=== PATIENT | male | born 1955 | race Caucasian/White ===

== ENCOUNTER 2017-01-26 15:36 | Inpatient (IN) ==
--- NOTE | 2017-01-26 15:47 | Emergency Department Note ---
Disposition Clinical Impression: Diverticulitis, Sepsis, TONI (acute kidney injury) Disposition: Admitted As Inpatient Condition: Good General Adult HPI - General Chief complaint: ED Abdominal Pain Stated complaint: Left flank pain Time Seen by Provider: 01/26/17 15:43 Source: patient - History of Present Illness Pain Scale: 2 - Related Data Previous Rx's Medication Instructions Recorded Naproxen [Naprosyn] 500 mg PO BID #10 tablet 11/25/16 Allergies Allergy/AdvReac Type Severity Reaction Status Date / Time acetaminophen [From Percocet] Allergy Itching Verified 01/26/17 15:43 Oxycodone [From Percocet] Allergy Itching Verified 01/26/17 15:43 Penicillins Allergy Blister Verified 01/26/17 15:43 Past Medical History - Past Medical History Medical history: Reports: hyperlipidemia, hypertension Surgical history: Reports: non-contributory Psychiatric history: Reports: anxiety, depression - Social History Smoking Status: Former smoker Alcohol use: Reports: none Drug use: Reports: none Physical Exam - General General appearance: alert, in no apparent distress Course Vital Signs Temperature 98.0 F 01/26/17 15:40 Pulse Rate 105 01/26/17 15:40 Respiratory Rate 16 01/26/17 15:40 Blood Pressure 126/86 01/26/17 15:40 O2 Sat by Pulse Oximetry 94 01/26/17 15:40 Temperature 98.0 F 01/27/17 07:28 Pulse Rate 64 01/27/17 07:28 Respiratory Rate 16 01/27/17 07:28 Blood Pressure 119/76 01/27/17 07:28 O2 Sat by Pulse Oximetry 95 01/27/17 07:28 Oxygen Delivery Oxygen Delivery Room Air Medical Decision Making - Lab Data Result diagrams: 01/27/17 03:30 01/27/17 03:30 Lab Results 01/26/17 01/26/17 01/26/17 Range/Units 16:17 16:17 16:17 WBC 12.8 H (4.3-11.1) K/mcL RBC 5.56 H (4.19-5.50) M/mcL Hgb 16.5 (12.9-16.9) g/dL Hct 49.0 (37.5-50.1) % MCV 88.1 (83.0-100.0) fL MCH 29.7 (28.0-33.3) pg MCHC 33.7 (31.6-35.5) g/dL RDW 13.3 (11.5-14.5) % Plt Count 235 (140-400) K/mcL MPV 10.9 (9.4-12.4) fL Immature Gran % 0.5 (0-4) % Seg Neutrophils % 72.2 % Lymphocytes % 17.7 % Monocytes % 8.6 % Eosinophils % 0.5 % Basophils % 0.5 % Neutrophils # 9.2 H (1.6-8.9) K/mcL Lymphocytes # 2.3 (0.6-4.6) K/mcL Monocytes # 1.1 (0.0-1.3) K/mcL Eosinophils # 0.1 (0.0-0.6) K/mcL Basophils # 0.1 (0.0-0.2) K/mcL PT 12.2 H (9.4-12.1) Seconds INR 1.1 APTT 31.5 (26.0-36.0) Seconds Sodium 139 (136-145) mEq/L Potassium 3.8 (3.5-4.5) mEq/L Chloride 107 (98-109) mEq/L Carbon Dioxide 22 (19-29) mEq/L BUN 13 (8-26) mg/dL Creatinine 1.81 H (0.72-1.25) mg/dL Est GFR ( Amer) 47 L (> 60) Est GFR (Non-Af Amer) 38 L (> 60) BUN/Creatinine Ratio 7 (6-26) Glucose 100 H (70-99) mg/dL Calculated Osmolality 288 (280-300) Lactic Acid (0.5-2.2) mmol/L Calcium 9.7 (8.6-10.8) mg/dL Phosphorus 2.4 (2.3-4.7) mg/dL Magnesium 2.0 (1.6-2.6) mg/dL Urine Color (Yellow) Urine Clarity (Clear) Urine pH (5.0-8.0) pH Units Ur Specific [place] (1.010-1.025) Urine Protein (Neg-Trace) mg/dL Urine Glucose (UA) (Normal) mg/dL Urine Ketones (Negative) mg/dL Urine Blood (Negative) Urine Nitrite (Negative) Urine Bilirubin (Negative) Urine Urobilinogen (Normal) mg/dL Ur Leukocyte Esterase (Negative) Urine Microscopic RBC (0-3) per hpf Urine Microscopic WBC (0-3) per hpf Ur Squamous Epith Cells (None-Few) per lpf Amorphous Sediment (Few) Urine Bacteria (None-Few) per hpf Hyaline Casts (None-Few) per lpf Granular Casts (None Seen) per lpf 01/26/17 01/26/17 Range/Units 16:53 17:52 WBC (4.3-11.1) K/mcL RBC (4.19-5.50) M/mcL Hgb (12.9-16.9) g/dL Hct (37.5-50.1) % MCV (83.0-100.0) fL MCH (28.0-33.3) pg MCHC (31.6-35.5) g/dL RDW (11.5-14.5) % Plt Count (140-400) K/mcL MPV (9.4-12.4) fL Immature Gran % (0-4) % Seg Neutrophils % % Lymphocytes % % Monocytes % % Eosinophils % % Basophils % % Neutrophils # (1.6-8.9) K/mcL Lymphocytes # (0.6-4.6) K/mcL Monocytes # (0.0-1.3) K/mcL Eosinophils # (0.0-0.6) K/mcL Basophils # (0.0-0.2) K/mcL PT (9.4-12.1) Seconds INR APTT (26.0-36.0) Seconds Sodium (136-145) mEq/L Potassium (3.5-4.5) mEq/L Chloride (98-109) mEq/L Carbon Dioxide (19-29) mEq/L BUN (8-26) mg/dL Creatinine (0.72-1.25) mg/dL Est GFR ( Amer) (> 60) Est GFR (Non-Af Amer) (> 60) BUN/Creatinine Ratio (6-26) Glucose (70-99) mg/dL Calculated Osmolality (280-300) Lactic Acid 1.1 (0.5-2.2) mmol/L Calcium (8.6-10.8) mg/dL Phosphorus (2.3-4.7) mg/dL Magnesium (1.6-2.6) mg/dL Urine Color Dark Yellow (Yellow) Urine Clarity Cloudy A (Clear) Urine pH 6.0 (5.0-8.0) pH Units Ur Specific [place] 1.021 (1.010-1.025) Urine Protein >=300 H (Neg-Trace) mg/dL Urine Glucose (UA) 100 H (Normal) mg/dL Urine Ketones Trace H (Negative) mg/dL Urine Blood Small H (Negative) Urine Nitrite Negative (Negative) Urine Bilirubin Small H (Negative) Urine Urobilinogen Normal (Normal) mg/dL Ur Leukocyte Esterase Small H (Negative) Urine Microscopic RBC 5-15 H (0-3) per hpf Urine Microscopic WBC 15-30 H (0-3) per hpf Ur Squamous Epith Cells Many H (None-Few) per lpf Amorphous Sediment Moderate H (Few) Urine Bacteria Moderate H (None-Few) per hpf Hyaline Casts Many H (None-Few) per lpf Granular Casts Few H (None Seen) per lpf Attestation Statement - Attestation Attestation: I examined this patient and my medical decision-making was reviewed with the PEDIATRIC RADIOLOGIST/PA/Advanced Practice Nurse/Resident Physician. I agree with the documented findings, disposition and treatment plan as described except to the extent set forth below. [id number] time provided Patient complains of left flank pain. He has a history of right sided nephrectomy due to a remote history of renal cell carcinoma. He is standing at the bedside at the time of my exam. He has a well-healed laparotomy incision. He appears in no acute distress
--- NOTE | 2017-01-26 16:10 | Emergency Department Note ---
Disposition Clinical Impression: TONI (acute kidney injury) Diverticulitis Qualifiers: Diverticulitis site: large intestine Diverticulitis bleeding: without bleeding Diverticulitis complication: without perforation or abscess Qualified Code(s): K57.32 - Diverticulitis of large intestine without perforation or abscess without bleeding Sepsis Qualifiers: Sepsis type: sepsis due to unspecified organism Qualified Code(s): A41.9 - Sepsis, unspecified organism Disposition: Admitted As Inpatient Condition: Good Referrals: NO,PCP [Primary Care Provider] - Forms: ED Satisfaction Letter, Work/School Release Time of Disposition: 17:50 General Adult HPI - General Chief complaint: ED Abdominal Pain Stated complaint: Left flank pain Time Seen by Provider: 01/26/17 15:43 Source: patient Mode of arrival: ambulatory Limitations: no limitations Nursing Notes Reviewed: Yes Vital Signs Reviewed: Yes - History of Present Illness HPI Narrative: 61-year-old male with history of hypertension, hyperlipidemia, right nephrectomy s/p RCC presents with left sided flank pain. Pain is sharp and radiates into the groin. This began yesterday morning while at rest. Pain has been intermittent and is currently 2/10. Reports fever and chills last night, though he did not take his temperature. He has associated left-sided abdominal pain as well. No history of trauma or heavy lifting. Denies any urinary complaints or testicular pain. Has some associated nausea but denies any vomiting. Denies any history of kidney stones. He has history of UTIs which he states he feels similar to today's episode. History of RCC with right nephrectomy in 2008. He follows Dr[address] Robison regularly, and states that he had no problems since his surgery. Patient denies dysuria, urinary frequency/ urgency, and musculoskeletal strain. Onset (ago): day(s) Location: back Radiation: abdomen, flank Pain Severity: mild Pain Scale: 2 Quality: sharp Consistency: intermittent Improves with: immobilization Associated symptoms: Reports: fever/chills, nausea/vomiting Treatments Prior to Arrival: none - Related Data Previous Rx's Medication Instructions Recorded Naproxen [Naprosyn] 500 mg PO BID #10 tablet 11/25/16 Allergies Allergy/AdvReac Type Severity Reaction Status Date / Time acetaminophen [From Percocet] Allergy Itching Verified 01/26/17 15:43 Oxycodone [From Percocet] Allergy Itching Verified 01/26/17 15:43 Penicillins Allergy Blister Verified 01/26/17 15:43 All systems ED: reviewed and negative except as stated. Constitutional: Reports: fever, chills Cardiovascular: Denies: chest pain, palpitations Respiratory: Denies: cough, dyspnea Gastrointestinal: Reports: nausea. Denies: abdominal pain, vomiting, diarrhea, constipation Genitourinary: Denies: urgency, dysuria, frequency, hematuria, testicular pain Musculoskeletal: Reports: back pain (left flank) Integumentary: Denies: rash, abrasion Neurological: Denies: headache Past Medical History - Past Medical History Attestation: Yes The following information was validated with the patient. 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) Psychiatric history: Reports: anxiety, depression - Social History Smoking Status: Former smoker Alcohol use: Reports: none Drug use: Reports: none Physical Exam - General Limitations: no limitations General appearance: alert, in no apparent distress, obese - Head Head exam: atraumatic, normocephalic - Eye Eye exam: Present: normal appearance, PERRL, EOMI - ENT ENT exam: normal exam, normal oropharynx, mucous membranes moist - Neck Neck exam: Present: normal inspection, full ROM, trachea midline - Chest Chest inspection: Present: normal inspection, symmetric chest wall rise - Respiratory Respiratory exam: Present: normal lung sounds bilaterally. Absent: respiratory distress, wheezes - Cardiovascular Cardiovascular exam: Present: regular rate, normal rhythm, normal heart sounds. Absent: systolic murmur, diastolic murmur - Abdominal Exam Abdominal exam: Present: soft (Obese), tenderness (Left-sided with radiation from the back), distention, normal bowel sounds, scar (Right of midline from nephrectomy). Absent: guarding, rebound, rigidity, organomegaly Abdominal tenderness: Present: LUQ, LLQ, diffuse, mild - Extremities Exam Extremities exam: Present: normal inspection, full ROM, normal capillary refill. Absent: tenderness, pedal edema, calf tenderness - Back Exam Back exam: Present: normal inspection, tenderness (Left-sided with radiation to the front of the abdomen), CVA tenderness (L). Absent: CVA tenderness (R), muscle spasm, rashes - Neurological Exam Neurological exam: Present: alert, oriented X3 - Psychiatric Psychiatric exam: Present: normal affect, normal mood - Skin Skin exam: Present: warm, dry, intact, normal color. Absent: rash Course Course Narrative: [id number] male presents with left flank pain. Denies any history of trauma or kidney stones. History of right nephrectomy [address] Nobles. Pain has been intermittent sharp radiates to the groin. Patient is in some mild distress. He is a febrile and tachycardic 102. Heart is regular rate and rhythm. Lungs are clear to auscultation bilaterally. Abdomen is soft but obese, no significant distention or rigidity. He has left CVA tenderness. Some mild tenderness along the left abdomen. No signs of trauma, rash or muscle spasm. Bloodwork reveals a mild leukocytosis 12.8. Creatinine is elevated at 1.8 with baseline around 1.3. Urine is concerning for possible infection but is contaminated with many squamous, small RBCs, moderate leuk esterase and no nitrites. Will culture. Will single kidney and pain, will get CT scan of abdomen and pelvis for possible kidney stones or intra-abdominal abnormalities. Patient is in agreement with plan. Pain medication offered but refuses medication at this time. He is informed to contact myself record press supervisor if pain worsens. - Reevaluation(s) Reevaluation #1: Lactate and blood cultures ordered. Patient has not been hypotensive and does not require 30 mL/kg fluid bolus resuscitation. Will start on Cipro and Flagyl for diverticulitis. This will cover also for possible UTI. With his single kidney and elevated creatinine 1.8 consistent with a acute kidney injury he would be appropriate for admission. Patient is in agreement with this plan. Impression is diverticulitis, sepsis, TONI, and possible UTI, Time: 17:58 Vital Signs Temperature 98.0 F 01/26/17 15:40 Pulse Rate 105 01/26/17 15:40 Respiratory Rate 16 01/26/17 15:40 Blood Pressure 126/86 01/26/17 15:40 O2 Sat by Pulse Oximetry 94 01/26/17 15:40 Temperature 98.0 F 01/26/17 15:40 Pulse Rate 81 01/26/17 17:10 Respiratory Rate 16 01/26/17 17:10 Blood Pressure 125/85 01/26/17 17:10 O2 Sat by Pulse Oximetry 94 01/26/17 17:10 Oxygen Delivery Oxygen Delivery Room Air Medical Decision Making - Medical Records Medical records reviewed: Yes I reviewed the patient's medical records. - Lab Data Lab results reviewed: Yes I reviewed the patient's lab results. Result diagrams: 01/26/17 16:17 01/26/17 16:17 Lab Results 01/26/17 01/26/17 01/26/17 Range/Units 16:17 16:17 16:17 WBC 12.8 H (4.3-11.1) K/mcL RBC 5.56 H (4.19-5.50) M/mcL Hgb 16.5 (12.9-16.9) g/dL Hct 49.0 (37.5-50.1) % MCV 88.1 (83.0-100.0) fL MCH 29.7 (28.0-33.3) pg MCHC 33.7 (31.6-35.5) g/dL RDW 13.3 (11.5-14.5) % Plt Count 235 (140-400) K/mcL MPV 10.9 (9.4-12.4) fL Immature Gran % 0.5 (0-4) % Seg Neutrophils % 72.2 % Lymphocytes % 17.7 % Monocytes % 8.6 % Eosinophils % 0.5 % Basophils % 0.5 % Neutrophils # 9.2 H (1.6-8.9) K/mcL Lymphocytes # 2.3 (0.6-4.6) K/mcL Monocytes # 1.1 (0.0-1.3) K/mcL Eosinophils # 0.1 (0.0-0.6) K/mcL Basophils # 0.1 (0.0-0.2) K/mcL PT 12.2 H (9.4-12.1) Seconds INR 1.1 APTT 31.5 (26.0-36.0) Seconds Sodium 139 (136-145) mEq/L Potassium 3.8 (3.5-4.5) mEq/L Chloride 107 (98-109) mEq/L Carbon Dioxide 22 (19-29) mEq/L BUN 13 (8-26) mg/dL Creatinine 1.81 H (0.72-1.25) mg/dL Est GFR ( Amer) 47 L (> 60) Est GFR (Non-Af Amer) 38 L (> 60) BUN/Creatinine Ratio 7 (6-26) Glucose 100 H (70-99) mg/dL Calculated Osmolality 288 (280-300) Calcium 9.7 (8.6-10.8) mg/dL Phosphorus 2.4 (2.3-4.7) mg/dL Magnesium 2.0 (1.6-2.6) mg/dL Urine Color (Yellow) Urine Clarity (Clear) Urine pH (5.0-8.0) pH Units Ur Specific [place] (1.010-1.025) Urine Protein (Neg-Trace) mg/dL Urine Glucose (UA) (Normal) mg/dL Urine Ketones (Negative) mg/dL Urine Blood (Negative) Urine Nitrite (Negative) Urine Bilirubin (Negative) Urine Urobilinogen (Normal) mg/dL Ur Leukocyte Esterase (Negative) Urine Microscopic RBC (0-3) per hpf Urine Microscopic WBC (0-3) per hpf Ur Squamous Epith Cells (None-Few) per lpf Amorphous Sediment (Few) Urine Bacteria (None-Few) per hpf Hyaline Casts (None-Few) per lpf Granular Casts (None Seen) per lpf 01/26/17 Range/Units 16:53 WBC (4.3-11.1) K/mcL RBC (4.19-5.50) M/mcL Hgb (12.9-16.9) g/dL Hct (37.5-50.1) % MCV (83.0-100.0) fL MCH (28.0-33.3) pg MCHC (31.6-35.5) g/dL RDW (11.5-14.5) % Plt Count (140-400) K/mcL MPV (9.4-12.4) fL Immature Gran % (0-4) % Seg Neutrophils % % Lymphocytes % % Monocytes % % Eosinophils % % Basophils % % Neutrophils # (1.6-8.9) K/mcL Lymphocytes # (0.6-4.6) K/mcL Monocytes # (0.0-1.3) K/mcL Eosinophils # (0.0-0.6) K/mcL Basophils # (0.0-0.2) K/mcL PT (9.4-12.1) Seconds INR APTT (26.0-36.0) Seconds Sodium (136-145) mEq/L Potassium (3.5-4.5) mEq/L Chloride (98-109) mEq/L Carbon Dioxide (19-29) mEq/L BUN (8-26) mg/dL Creatinine (0.72-1.25) mg/dL Est GFR ( Amer) (> 60) Est GFR (Non-Af Amer) (> 60) BUN/Creatinine Ratio (6-26) Glucose (70-99) mg/dL Calculated Osmolality (280-300) Calcium (8.6-10.8) mg/dL Phosphorus (2.3-4.7) mg/dL Magnesium (1.6-2.6) mg/dL Urine Color Dark Yellow (Yellow) Urine Clarity Cloudy A (Clear) Urine pH 6.0 (5.0-8.0) pH Units Ur Specific [place] 1.021 (1.010-1.025) Urine Protein >=300 H (Neg-Trace) mg/dL Urine Glucose (UA) 100 H (Normal) mg/dL Urine Ketones Trace H (Negative) mg/dL Urine Blood Small H (Negative) Urine Nitrite Negative (Negative) Urine Bilirubin Small H (Negative) Urine Urobilinogen Normal (Normal) mg/dL Ur Leukocyte Esterase Small H (Negative) Urine Microscopic RBC 5-15 H (0-3) per hpf Urine Microscopic WBC 15-30 H (0-3) per hpf Ur Squamous Epith Cells Many H (None-Few) per lpf Amorphous Sediment Moderate H (Few) Urine Bacteria Moderate H (None-Few) per hpf Hyaline Casts Many H (None-Few) per lpf Granular Casts Few H (None Seen) per lpf - Radiology Data Radiology results reviewed: Yes I reviewed the patient's radiology results. Abdomen/Pelvis CT 01/26/17 16:10 IMPRESSION: Findings consistent with acute uncomplicated diverticulitis involving the descending colon. Mild interval enlargement of right adrenal nodule, most likely an adenoma in the absence of a known primary malignancy. Chronic wall thickening of the urinary bladder may relate to prostatomegaly. D/ / Sherman Carson MD / Sherman Carson MD Interpreting Provider: Sherman Carson MD
[2017-01-26 16:27] LABS: Basophils # 0.1 K/mcL (0.0-0.2); Basophils % 0.5 %; Eosinophils # 0.1 K/mcL (0.0-0.6); Eosinophils % 0.5 %; Hemoglobin 16.5 g/dL (12.9-16.9); Immature Granulocytes % 0.5 % (0-4); Lymphocytes # 2.3 K/mcL (0.6-4.6); Lymphocytes % 17.7 %; Mean Corpuscular HGB Conc 33.7 g/dL (31.6-35.5); Mean Corpuscular Hemoglobin 29.7 pg (28.0-33.3); Mean Corpuscular Volume 88.1 fL (83.0-100.0); Mean Platelet Volume 10.9 fL (9.4-12.4); Monocytes # 1.1 K/mcL (0.0-1.3); Monocytes % 8.6 %; Neutrophils # 9.2 K/mcL (1.6-8.9); Platelet Count 235 K/mcL (140-400); Red Blood Count 5.56 M/mcL (4.19-5.50); Red Cell Distribution Width 13.3 % (11.5-14.5); Segmented Neutrophils % 72.2 %
[2017-01-26 16:40] LABS: Calcium 9.7 mg/dL (8.6-10.8); Potassium 3.8 mEq/L (3.5-4.5)
[2017-01-26 17:03] LABS: Bilirubin,Urine Small (Negative); Blood,Urine Small (Negative); Clarity,Urine Cloudy (Clear); Color,Urine Dark Yellow (Yellow); Glucose,Urine (UA) 100 mg/dL (Normal); Ketones,Urine Trace mg/dL (Negative); Leukocyte Esterase,Urine Small (Negative); Nitrite,Urine Negative (Negative); Protein,Urine >=300 mg/dL (Neg-Trace); Specific Gravity,Urine 1.021 (1.010-1.025); Urobilinogen,Urine Normal (Normal)
[2017-01-26 17:04] LABS: Squamous Epithelial Cell,Urine Many per lpf (None-Few); WBC,Urine 15-30 per hpf (0-3)
[2017-01-26 17:11] LABS: Hyaline Casts,Urine Many per lpf (None-Few)
[2017-01-26 17:12] LABS: Amorphous Sediment,Urine Moderate (Few); Granular Casts,Urine Few per lpf (None Seen)
[2017-01-26 17:13] LABS: Bacteria,Urine Moderate per hpf (None-Few)
[2017-01-26] MEDS ORDERED: 0.9 % Sodium Chloride 1,000 ML IVC ONE (17:33)
[2017-01-26] MEDS ORDERED: MetroNIDAZOLE 500 MG/100 ML 500 MG/100 ML BAG IVPB ONE (17:36)
[2017-01-26] MEDS ORDERED: *HR* Morphine 2 MG/ML SYRINGE IV ONE (17:48)
[2017-01-26] MEDS ORDERED: Ondansetron 4 MG/2 ML VIAL IV ONE (17:48)
[2017-01-26 17:53] LABS: Phosphorous 2.4 mg/dL (2.3-4.7)
[2017-01-26 17:54] LABS: INR 1.1; Prothrombin Time 12.2 Seconds (9.4-12.1)
[2017-01-26 17:57] LABS: Activated Partial Thrombo Time 31.5 Seconds (26.0-36.0)
[2017-01-26] MEDS ORDERED: Naloxone 0.4 MG/ML INJ IVP PRN (20:50)
[2017-01-26] MEDS ORDERED: *HR* Morphine 2 MG/ML SYRINGE IVP PRN (20:56)
[2017-01-26] MEDS ORDERED: *HR* Promethazine 25 MG/ML VIAL IVP PRN (20:58)
--- NOTE | 2017-01-26 21:03 | Internal Med History&Physical ---
Date of Encounter: 01/26/17 Time of Encounter: 20:20 Assessment and Plan (1) Diverticulitis Current visit: Yes Status: Acute 1. Will keep npo. 2. IVF and IV antibiotics. 3. Pain control with IV Morphine. 4. Nausea control with IV Phenergan. 5. Clinical monitoring. 6. If fails to improve, will consult surgery. However, I anticipate with conservative measures above, he will improve. Qualifiers: Diverticulitis site: large intestine Diverticulitis bleeding: without bleeding Diverticulitis complication: without perforation or abscess Qualified Code(s): K57.32 - Diverticulitis of large intestine without perforation or abscess without bleeding (2) Acute kidney injury superimposed on CKD Current visit: Yes Status: Acute 1. Hold BP meds and diuretics. 2. IVF hydration. 3. Monitor renal function. May need nephrology consult if renal function does not improve. 4. Urine culture ordered through ER. Follow culture results. (3) Hypertension Current visit: Yes Status: Chronic 1. Verify home meds. 2. Hold po meds and use Hydralazine PRN IV. 3. Monitor and adjust as needed. Qualifiers: Hypertension type: essential hypertension Qualified Code(s): I10 - Essential (primary) hypertension (4) DVT prophylaxis Current visit: Yes Status: Acute 1. Heparin SQ. Internal Medicine - H&P: HPI Chief complaint: LLQ abdominal pain Admitted From: Emergency Dept Plans for Post Hospital Care: Home History of present illness: Mr. Mary is a 61 year old male who presents to the ER with a 2 day history of left lower quadrant abdominal pain and left flank pain. Pain was severe and associated with nausea but no vomiting or diarrhea. His appetite and fluid intake have markedly decreased over the last 24 hours. Because of the severe pain, he came to the ER for evaluation. Workup in the ER revealed patient to have evidence of what appeared to be acute diverticulitis of the descending colon. He was subsequently admitted to the hospitalist service. Upon my assessment of the patient, he is feeling much better but he still complains of some mild pain and nausea. He has had subjective fevers and chills but no night sweats. Appetite and fluid intake have decreased substantially. He denies any chest pain, cough, congestion, or shortness of breath. He denies any dysuria or hematuria. However, he has had decreased urine output over the last 2 days. Past Med Surg Social Fam HX - Past Medical History Attestation: Yes The following information was validated with the patient. Source: patient, old records reviewed Medical history: cancer (renal cell carcinoma s/p nephrectomy 2009), hyperlipidemia, hypertension Psychiatric history: anxiety, depression - Past Surgical History Surgical History: cholecystectomy, other (nephrectomy right kidney) - Social History Smoking Status: Former smoker Alcohol use: none Drug use: none Current living situation: Home Activity Level: Independent ambulation Recent Out of Country Travel Within the Last 8 Weeks: No - Family History Mother Adopted: Yes Twin of Family Member: Yes Living Status: Cause of : cancer Hx Family Cardiac Disorders: No Hx Family Respiratory Disorders: No Hx Family Cancer: Yes (mom and dad (non hydgekins), Kidney) Hx Family GI Disorders: No Hx Family Genitourinary Disorders: No Hx Family Endocrine Disorder: (thyroid, goiter,) Hx Family Musculoskeletal Disorders: No Hx Family Neuromuscular Disorders: No Hx Family Neurologic Disorders: No Hx Family HEENT Disorders: No Hx Family Autoimmune Disorders: Yes (sister RA and OA) Hx Family Psychosocial Disorders: No Hx Family Medical Disorders: No Father Living Status: Cause of : lymphoma Internal Medicine - H&P: Meds Naproxen [Naprosyn] 500 mg PO BID #10 tablet 11/25/16 [Rx] Allergies acetaminophen [From Percocet] Allergy (Verified 01/26/17 15:43) Itching Oxycodone [From Percocet] Allergy (Verified 01/26/17 15:43) Itching Penicillins Allergy (Verified 01/26/17 15:43) Blister - Constitutional Constitutional: chills, fever(s), no night sweats - EENT Eyes: no blurry vision, no change in vision Ears: no ear pain, no tinnitus Nose, mouth and throat: no nasal congestion, no nasal discharge, no sinus pressure, no sore throat - Cardiovascular Cardiovascular ROS IM: no chest pain, no dyspnea, no dyspnea on exertion - Respiratory Respiratory: no cough, no dyspnea, no hemoptysis - Gastrointestinal Gastrointestinal: abdominal pain, heartburn, nausea, no diarrhea, no hematemesis , no hematochezia, no melena, no vomiting - Genitourinary Genitourinary ROS male: no difficulty urinating, no dysuria, no hematuria - Musculoskeletal Musculoskeletal ROS IM: back pain (left flank), no arthralgias - Integumentary Integumentary IM: no rash - Neurological Neurological ROS: no disequilibrium, no dizziness, no focal weakness, no frequent falls, no headache(s) - Psychiatric Psychiatric: no anxiety, no depression - Endocrine Endocrine IM: no polydipsia, no polyuria - Allergic/Immunologic Allergic/Immunologic: GI upset with certain foods, no wheezing - Constitutional Vitals: Temp Pulse Resp BP Pulse Ox 98.2 F 85 20 161/106 97 01/26/17 20:56 01/26/17 20:56 01/26/17 20:56 01/26/17 20:56 01/26/17 20:56 General appearance: Present: cooperative, mild distress, A&O X 3, pleasant, answers questions appropriately Exam: pt has speech impediment (stuttering); speech easily understood however - Head Head exam: Present: atraumatic, normal inspection - Expanded Head Exam Head exam expanded: Absent: abrasion, contusion, general tenderness - Eye Eye exam: Present: EOMI, normal appearance, PERRL. Absent: scleral icterus Pupils: Present: normal accommodation - ENT ENT exam: Present: mucous membranes dry, normal exam, normal oropharynx - Neck Neck exam general surgery: Present: full ROM, normal inspection, supple. Absent : lymphadenopathy, tenderness, nuchal rigidity - Expanded Neck Exam Neck exam: Absent: carotid bruit - Respiratory Respiratory exam: Present: CTAB. Absent: chest wall tenderness, rales, rhonchi , wheezes - Cardiovascular Cardiovascular exam: Present: RRR, +S1, +S2. Absent: diastolic murmur, systolic murmur - GI/Abdominal GI/Abdominal exam: Present: normal bowel sounds, soft, tenderness (LLQ to left flank), no peritoneal signs. Absent: guarding, hepatomegaly, mass, rebound, splenomegaly - Extremities Exam Extremities exam: Present: full ROM, normal capillary refill, warm, radial pulses palpable and symetrical. Absent: calf tenderness, joint swelling - Back Exam Back exam: Present: normal inspection. Absent: CVA tenderness (L), CVA tenderness (R) - Neurological Exam Neurological exam: Present: alert, CN II-XII intact, oriented X3, no focal deficits - Psychiatric Psychiatric exam: Present: normal affect, normal mood - Skin Skin exam: Present: dry, warm. Absent: rash Internal Med - H&P Results - Labs CBC & Chem 7: 01/26/17 16:17 01/26/17 16:17 - Diagnostic Studies CT scan - abdomen Additional comments: Report reviewed: diverticulitis of descending colon
[2017-01-26] MEDS: D5% in 0.45% NACL 1,000 ML IVC SCH (22:15)
[2017-01-27] MEDS: MetroNIDAZOLE 500 MG/100 ML 500 MG/100 ML BAG IVPB SCH ×3 (02:22→17:46)
[2017-01-27 04:04] LABS: Basophils # 0.1 K/mcL (0.0-0.2); Basophils % 0.7 %; Eosinophils # 0.2 K/mcL (0.0-0.6); Eosinophils % 1.5 %; Hematocrit 44.7 % (37.5-50.1); Hemoglobin 15.1 g/dL (12.9-16.9); Lymphocytes # 2.2 K/mcL (0.6-4.6); Lymphocytes % 21.3 %; Mean Corpuscular HGB Conc 33.8 g/dL (31.6-35.5); Mean Corpuscular Hemoglobin 29.8 pg (28.0-33.3); Mean Corpuscular Volume 88.3 fL (83.0-100.0); Mean Platelet Volume 11.3 fL (9.4-12.4); Monocytes # 0.9 K/mcL (0.0-1.3); Monocytes % 8.5 %; Neutrophils # 6.8 K/mcL (1.6-8.9); Platelet Count 212 K/mcL (140-400); Red Blood Count 5.06 M/mcL (4.19-5.50); Red Cell Distribution Width 13.5 % (11.5-14.5)
[2017-01-27 04:21] LABS: Albumin 3.2 g/dL (3.5-5.0); Albumin/Globulin Ratio 0.8 (1.1-2.2); Bilirubin,Total 1.2 mg/dL (0.2-1.2); Calcium 9.2 mg/dL (8.6-10.8); Globulin 3.8 g/dL (2.4-3.5); Magnesium 2.1 mg/dL (1.6-2.6); Potassium 3.6 mEq/L (3.5-4.5)
[2017-01-27] MEDS: *HR* Heparin 5,000 UNIT/ML VIAL SQ SCH ×2 (05:53→17:47)
[2017-01-27] MEDS: Pantoprazole 40 MG VIAL IVP SCH (05:53)
[2017-01-27] MEDS: D5% in 0.45% NACL 1,000 ML IVC SCH (09:45)
--- NOTE | 2017-01-27 09:54 | Internal Med Progress Note ---
Date of Encounter: 01/27/17 Time of Encounter: 09:15 - Assessment and plan (1) Diverticulitis Current Visit: Yes Status: Acute Assessment and plan: Clinically improving Will continue IV fluids and IV abx Will start clear liquid diet pain control Phenergan IV prn nausea/vomiting will continue to closely monitor follow up blood cultures Qualifiers: Diverticulitis site: large intestine Diverticulitis bleeding: without bleeding Diverticulitis complication: without perforation or abscess Qualified Code(s): K57.32 - Diverticulitis of large intestine without perforation or abscess without bleeding (2) Acute kidney injury superimposed on CKD Current Visit: Yes Status: Acute Assessment and plan: Improved from previous day continue IV fluids holding all nephrotoxic agents at this time will continue to closely monitor (3) Hypertension Current Visit: Yes Status: Chronic Assessment and plan: BP within acceptable limits off any hypertensive medications Will verify home meds and restart them as needed continue to closely monitor BP Hydralazine 10mg IV q6h PRN SBP>160 Qualifiers: Hypertension type: essential hypertension Qualified Code(s): I10 - Essential (primary) hypertension (4) DVT prophylaxis Current Visit: Yes Status: Acute Assessment and plan: Heparin SQ - Subjective Interval history: Patient seen and examined at bedside. Sitting comfortably in bed and reports of improvement in his symptoms compared to the previous day. States his pain is better controlled, denies any nausea and vomiting. States he finally feels hungry. - Constitutional Vitals: Temp Pulse Resp BP Pulse Ox 98.0 F 64 16 119/76 95 01/27/17 07:28 01/27/17 07:28 01/27/17 07:28 01/27/17 07:28 01/27/17 07:28 General appearance: Present: cooperative, A&O X 3, pleasant, no acute distress, obese, answers questions appropriately - Head Head exam: Present: atraumatic, normocephalic - Eye Eye exam: Present: normal appearance, conjuntiva pink, sclera anicteric - Respiratory Respiratory exam: Present: CTAB. Absent: accessory muscle use, rales, rhonchi, wheezes - Cardiovascular Cardiovascular exam: Present: RRR, +S1, +S2. Absent: diastolic murmur, gallop, rubs, systolic murmur - GI/Abdominal GI/Abdominal exam: Present: normal bowel sounds, soft, no peritoneal signs. Absent: distended, guarding, rebound, tenderness - Extremities Exam Extremities exam: Present: warm, radial pulses palpable and symetrical. Absent : calf tenderness, cyanotic, pedal edema - Neurological Exam Neurological exam: Present: alert, oriented X3 - Psychiatric Psychiatric exam: Present: normal affect, normal mood Internal Medicine: Result - Labs CBC & Chem 7: 01/27/17 03:30 01/27/17 03:30 Labs: Short CBC 01/27/17 Range/Units 03:30 WBC 10.1 (4.3-11.1) K/mcL Hgb 15.1 (12.9-16.9) g/dL Hct 44.7 (37.5-50.1) % Plt Count 212 (140-400) K/mcL Neutrophils # 6.8 (1.6-8.9) K/mcL BMP 01/27/17 03:30 Sodium 138 Potassium 3.6 Chloride 106 Carbon Dioxide 19 BUN 14 Creatinine 1.51 H Glucose 93 Calcium 9.2 Liver Function 01/27/17 Range/Units 03:30 Total Bilirubin 1.2 (0.2-1.2) mg/dL AST 14 (5-34) Units/L ALT 19 (0-55) Units/L Alkaline Phosphatase 77 (38-126) Units/L Albumin 3.2 L (3.5-5.0) g/dL - ABG Interpretation ABG results: PT/INR, D-dimer PT 12.2 Seconds (9.4-12.1) H 01/26/17 16:17 Consult Discharge Plan - Plan Referrals: NO,PCP [Primary Care Provider] -
[2017-01-27] MEDS: 0.9 % Sodium Chloride 1,000 ML IVC SCH ×2 (09:58→19:55)
[2017-01-28] MEDS: MetroNIDAZOLE 500 MG/100 ML 500 MG/100 ML BAG IVPB SCH ×2 (00:46→08:43)
[2017-01-28 04:30] LABS: Basophils # 0.1 K/mcL (0.0-0.2); Basophils % 1.1 %; Eosinophils # 0.3 K/mcL (0.0-0.6); Eosinophils % 3.2 %; Hematocrit 43.6 % (37.5-50.1); Hemoglobin 14.3 g/dL (12.9-16.9); Immature Granulocytes % 0.9 % (0-4); Lymphocytes # 2.3 K/mcL (0.6-4.6); Lymphocytes % 28.1 %; Mean Corpuscular HGB Conc 32.8 g/dL (31.6-35.5); Mean Corpuscular Hemoglobin 29.4 pg (28.0-33.3); Mean Corpuscular Volume 89.5 fL (83.0-100.0); Mean Platelet Volume 11.2 fL (9.4-12.4); Monocytes # 0.6 K/mcL (0.0-1.3); Monocytes % 7.9 %; Neutrophils # 4.8 K/mcL (1.6-8.9); Platelet Count 208 K/mcL (140-400); Red Blood Count 4.87 M/mcL (4.19-5.50); Red Cell Distribution Width 13.2 % (11.5-14.5); Segmented Neutrophils % 58.8 %
[2017-01-28 05:01] LABS: BUN/Creatinine Ratio 10 (6-26); Blood Urea Nitrogen 13 mg/dL (8-26); Calcium 8.8 mg/dL (8.6-10.8); Carbon Dioxide 20 mEq/L (19-29); Chloride 110 mEq/L (98-109); Glucose 83 mg/dL (70-99); Magnesium 2.1 mg/dL (1.6-2.6); Osmolality,Calculated 293 (280-300); Phosphorous 2.6 mg/dL (2.3-4.7); Potassium 3.6 mEq/L (3.5-4.5); Sodium 142 mEq/L (136-145); eGFR For African Americans > 60 (> 60); eGFR For Non-African Americans 54 (> 60)
[2017-01-28] MEDS: Pantoprazole 40 MG VIAL IVP SCH (06:11)
[2017-01-28] MEDS: *HR* Heparin 5,000 UNIT/ML VIAL SQ SCH (06:11)
--- NOTE | 2017-01-28 09:29 | Discharge Summary ---
Date of Encounter: 01/28/17 Time of Encounter: 09:15 - Discharge Diagnosis (1) Sepsis Priority: Primary Status: Acute Qualifiers: Sepsis type: sepsis due to unspecified organism Qualified Code(s): A41.9 - Sepsis, unspecified organism (2) Diverticulitis Priority: Primary Status: Acute Qualifiers: Diverticulitis site: large intestine Diverticulitis bleeding: without bleeding Diverticulitis complication: without perforation or abscess Qualified Code(s): K57.32 - Diverticulitis of large intestine without perforation or abscess without bleeding (3) TONI (acute kidney injury) Priority: Primary Status: Acute (4) Hypertension Priority: Secondary Status: Chronic Qualifiers: Hypertension type: essential hypertension Qualified Code(s): I10 - Essential (primary) hypertension - Discharge Medications Prescriptions: MetroNIDAZOLE [Metronidazole] 500 mg PO Q8HR #24 tablet Ciprofloxacin HCl [Cipro] 500 mg PO Q12HR #16 tablet Home Medications: Amiloride [Midamor] 5 mg PO DAILY 01/27/17 [History] Ascorbate Calcium [Vitamin C] 500 mg PO DAILY 01/27/17 [History] Aspirin 81 mg PO DAILY 01/27/17 [History] Diltiazem HCl [Diltiazem ER] 240 mg PO DAILY 01/27/17 [History] Montelukast [Singulair] 10 mg PO DAILY 01/27/17 [History] Potassium Chloride [K-Tab ER] 20 meq PO DAILY 01/27/17 [History] Pravastatin Sodium [Pravachol] 20 mg PO DAILY 01/27/17 [History] Ciprofloxacin HCl [Cipro] 500 mg PO Q12HR #16 tablet 01/28/17 [Rx] MetroNIDAZOLE [Metronidazole] 500 mg PO Q8HR #24 tablet 01/28/17 [Rx] Allergies/Adverse Reactions: Allergies acetaminophen [From Percocet] Allergy (Verified 01/26/17 15:43) Itching Oxycodone [From Percocet] Allergy (Verified 01/26/17 15:43) Itching Penicillins Allergy (Verified 01/26/17 15:43) Blister Date of admission: 01/27/17 00:05 Primary care physician: PCP NO - Patient Status Disposition: Home, Self-Care Condition: Good Functional capacity at discharge: independent ambulation Overall status at discharge: patient is progressing back to baseline - Discharge Instructions Instructions: Diverticulitis (DC) Follow Up With: Cristina Singer MD [Non-Partnered Physician] - 02/04/17 3:45 pm Additional Instructions: CHECK YOUR BLOOD PRESSURE TWICE DAILY, SAME TIME EVERY DAY. MAKE A LOG AND BRING NUMBERS TO DOCTOR'S APPOINTMENT. - Diet and Activity Activity: resume usual activities as tolerated Diet: other (LOW SALT AND DIVERTICULAR DIET. SOFT DIET FOR 1 WEEK, THEN ADVANCE TOLERATED.) Interval History: PATIENT HAS NO ABDOMINAL PAIN, HE IS AMBULATING WELL. HE HAD NO ISSUES WITH HIS LIQUID DIET YESTERDAY. Hospital course: Mr. Mary is a 61 year old male with past medical history of hypertension who presented with the chief complaint of left lower quadrant abdominal pain. CT of the abdomen and pelvis revealed acute uncomplicated diverticulitis involving the descending colon, chronic wall thickening of the urinary bladder may be related to prostatomegaly. Patient was admitted with diagnosis of acute diverticulitis and was started on IV fluids and empiric antibiotics. Patient clinically improved and he was tolerating his diet and ambulating well at discharge. PLAN: Oral ciprofloxacin and oral Flagyl for a total of 10 days. Follow-up with primary care physician in one week. Check blood pressures twice daily. Check BMP in 1 week before doctor's appointment. - Time Spent with Patient Total time spent providing and/or coordinating discharge services: - Constitutional Vitals: Temp Pulse Resp BP Pulse Ox 98.2 F 79 16 137/87 95 01/28/17 08:06 01/28/17 08:06 01/28/17 08:06 01/28/17 08:06 01/28/17 08:06 General appearance: Present: cooperative, A&O X 3, pleasant, no acute distress, obese, answers questions appropriately - Eye Eye exam: Present: PERRL, sclera anicteric - Neck Neck exam general surgery: Present: supple, trachea midline. Absent: lymphadenopathy - Respiratory Respiratory exam: Present: CTAB - Cardiovascular Cardiovascular exam: Present: RRR - GI/Abdominal GI/Abdominal exam: Present: normal bowel sounds, soft. Absent: distended, tenderness - Extremities Exam Extremities exam: Absent: pedal edema - Neurological Exam Neurological exam: Present: alert, oriented X3, no focal deficits, strengths equal and symetr throughout. Absent: facial droop, speech deficit - Skin Skin exam: Absent: rash
[2017-01-28 10:13] VITALS: BP 137/87
== END 2017-01-28 11:48 | disposition home or self-care (01) | DRG 872 ==
LOC: 3ANU 15:36 → EMEROO 15:36 → 3ANU 20:21 → SUATTDRO 01-27 00:05
PROVIDERS: ADMIT Pediatrics; ATTEND Internal Medicine

== ENCOUNTER 2020-07-07 17:16 | Observation (INO) ==
[2020-07-07] MEDS ORDERED: Isovue-370 500 ML BOTTLE IVP ONE (17:48)
[2020-07-07] MEDS ORDERED: *HR* FentaNYL (PF) 100 MCG/2 ML VIAL IVP ONE (17:48)
[2020-07-07 18:16] LABS: Basophils # 0.1 K/mcL (0.0-0.2); Basophils % 0.6 %; Eosinophils # 0.2 K/mcL (0.0-0.6); Eosinophils % 2.3 %; Hematocrit 42.9 % (37.5-50.1); Immature Granulocytes % 0.5 % (0-4); Lymphocytes # 2.1 K/mcL (0.6-4.6); Lymphocytes % 21.3 %; Mean Corpuscular HGB Conc 32.6 g/dL (31.6-35.5); Mean Corpuscular Hemoglobin 30.2 pg (28.0-33.3); Mean Corpuscular Volume 92.5 fL (83.0-100.0); Mean Platelet Volume 11.1 fL (9.4-12.4); Monocytes % 10.4 %; Neutrophils # 6.4 K/mcL (1.6-8.9); Platelet Count 199 K/mcL (140-400); Red Blood Count 4.64 M/mcL (4.19-5.50); Red Cell Distribution Width 13.4 % (11.5-14.5); Segmented Neutrophils % 64.9 %; White Blood Count 9.9 K/mcL (4.3-11.1)
[2020-07-07 18:25] LABS: Alanine Aminotransferase 11 Units/L (7-52); Albumin/Globulin Ratio 1.4 (1.1-2.2); Alkaline Phosphatase 79 Units/L (34-104); Aspartate Amino Transferase 12 Units/L (13-39); BUN/Creatinine Ratio 9 (6-26); Bilirubin,Direct 0.1 mg/dL (0.0-0.2); Bilirubin,Indirect 0.7 mg/dL (0.0-1.0); Bilirubin,Total 0.8 mg/dL (0.3-1.0); Blood Urea Nitrogen 13 mg/dL (8-23); Calcium 8.8 mg/dL (8.6-10.3); Carbon Dioxide 25 mEq/L (23-29); Chloride 105 mEq/L (98-107); Globulin 2.9 g/dL (2.4-3.5); Glucose 76 mg/dL (70-105); Lipase 28 Units/L (11-82); Osmolality,Calculated 285 (280-300); Potassium 3.7 mEq/L (3.5-5.1); Sodium 138 mEq/L (136-145); Total Protein 6.9 g/dL (6.4-8.9); eGFR For African Americans > 60 (> 60); eGFR For Non-African Americans 51 (> 60)
[2020-07-07 18:37] LABS: Bilirubin,Urine Negative (Negative); Blood,Urine Negative (Negative); Clarity,Urine Clear (Clear); Color,Urine Yellow (Yellow); Glucose,Urine (UA) Normal (Normal); Ketones,Urine Negative (Negative); Leukocyte Esterase,Urine Negative (Negative); Nitrite,Urine Negative (Negative); Protein,Urine Trace mg/dL (Neg-Trace); Specific Gravity,Urine 1.024 (1.010-1.025); Urobilinogen,Urine Normal (Normal)
[2020-07-07] MEDS ORDERED: Ondansetron ODT 4 MG TAB.RAPDIS SL PRN (19:50)
[2020-07-07] MEDS ORDERED: Naloxone 0.4 MG/ML INJ IVP PRN (19:50)
[2020-07-07] MEDS: 0.9 % Sodium Chloride 1,000 ML IVC SCH (22:41)
[2020-07-07] MEDS ORDERED: Morphine Sulfate 2 MG/ML SYRINGE IVP PRN (23:21)
[2020-07-07] MEDS: Clindamycin 600 MG/50 ML 600 MG/50 ML IV.SOLN IVPB SCH (23:55)
[2020-07-08 00:26] LABS: Adenovirus Not Detected (Not Detect); Bordetella Pertussis Not Detected (Not Detect); Chlamydophila pneumoniae Not Detected (Not Detect); Coronavirus 229E Not Detected (Not Detect); Coronavirus HKU1 Not Detected (Not Detect); Coronavirus NL63 Not Detected (Not Detect); Coronavirus OC43 Not Detected (Not Detect); Human Metapneumovirus Not Detected (Not Detect); Human Rhinovirus/Enterovirus Not Detected (Not Detect); Influenza A Subtype 2009 H1 Not Detected (Not Detect); Influenza B Not Detected (Not Detect); Mycoplasma pneumoniae Not Detected (Not Detect); Parainfluenza Virus 1 Not Detected (Not Detect); Parainfluenza Virus 2 Not Detected (Not Detect); Parainfluenza Virus 3 Not Detected (Not Detect); Parainfluenza Virus 4 Not Detected (Not Detect); Respiratory Syncytial Virus Not Detected (Not Detect); SARS-CoV-2 Not Detected (Not Detect)
[2020-07-08] MEDS: carvediloL 25 MG TABLET PO SCH ×3 (01:26→17:36)
[2020-07-08 06:06] LABS: Basophils # 0.1 K/mcL (0.0-0.2); Basophils % 0.6 %; Eosinophils # 0.3 K/mcL (0.0-0.6); Eosinophils % 3.7 %; Hematocrit 39.1 % (37.5-50.1); Hemoglobin 12.8 g/dL (12.9-16.9); Immature Granulocytes % 0.6 % (0-4); Lymphocytes # 1.9 K/mcL (0.6-4.6); Lymphocytes % 23.6 %; Mean Corpuscular HGB Conc 32.7 g/dL (31.6-35.5); Mean Corpuscular Hemoglobin 30.5 pg (28.0-33.3); Mean Corpuscular Volume 93.1 fL (83.0-100.0); Mean Platelet Volume 11.2 fL (9.4-12.4); Monocytes # 0.7 K/mcL (0.0-1.3); Monocytes % 8.8 %; Neutrophils # 5.1 K/mcL (1.6-8.9); Platelet Count 182 K/mcL (140-400); Red Cell Distribution Width 13.5 % (11.5-14.5); Segmented Neutrophils % 62.7 %; White Blood Count 8.2 K/mcL (4.3-11.1)
[2020-07-08 06:26] LABS: BUN/Creatinine Ratio 8 (6-26); Blood Urea Nitrogen 11 mg/dL (8-23); Calcium 8.3 mg/dL (8.6-10.3); Carbon Dioxide 24 mEq/L (23-29); Chloride 107 mEq/L (98-107); Glucose 88 mg/dL (70-105); Osmolality,Calculated 285 (280-300); Potassium 3.8 mEq/L (3.5-5.1); Sodium 138 mEq/L (136-145); eGFR For African Americans > 60 (> 60); eGFR For Non-African Americans 55 (> 60)
[2020-07-08] MEDS ORDERED: Dexamethasone 4 MG/ML VIAL ONE (07:12)
[2020-07-08] MEDS ORDERED: Ondansetron 4 MG/2 ML VIAL ONE (07:12)
[2020-07-08] MEDS ORDERED: Lidocaine -MPF 2% 2 ML VIAL ONE (07:12)
[2020-07-08] MEDS ORDERED: *HR* Rocuronium Bromide 50 MG/5 ML VIAL ONE (07:12)
[2020-07-08] MEDS ORDERED: *HR* FentaNYL (PF) 100 MCG/2 ML VIAL ONE (07:13)
[2020-07-08] MEDS ORDERED: *HR* Propofol 200 MG/20 ML VIAL IVP ONE (07:13)
[2020-07-08] MEDS ORDERED: *HR* Midazolam HCl 2 MG/2 ML VIAL ONE (07:13)
[2020-07-08] MEDS ORDERED: Clindamycin 600 MG/50 ML 600 MG/50 ML IV.SOLN IVPB ONE (08:04)
[2020-07-08] MEDS: Clindamycin 600 MG/50 ML 600 MG/50 ML IV.SOLN IVPB SCH ×3 (08:07→23:29)
[2020-07-08] MEDS ORDERED: *HR* Labetalol 20 MG/4 ML SYRINGE IVP PRN (08:18)
[2020-07-08] MEDS ORDERED: Morphine Sulfate 2 MG/ML SYRINGE IVP PRN (08:18)
[2020-07-08] MEDS ORDERED: *HR* Promethazine 25 MG/ML VIAL IVP PRN (08:18)
[2020-07-08] MEDS ORDERED: Ondansetron 4 MG/2 ML VIAL IVP PRN (08:18)
[2020-07-08] MEDS ORDERED: EPHEDrine 50 MG/ML VIAL ONE (08:41)
[2020-07-08] MEDS ORDERED: *HR* Vasopressin 20 UNIT/ML VIAL ONE (08:45)
[2020-07-08] MEDS ORDERED: Aspirin 81 MG TAB.CHEW PO SCH (09:00)
[2020-07-08] MEDS ORDERED: Albumin Human 5% 25.0 GM/500 ML IV.SOLN ONE (09:21)
[2020-07-08] MEDS ORDERED: *HR* HYDROcodone/Acet 5/325 mg TABLET PO PRN ×2 (11:00→12:29)
[2020-07-08] MEDS ORDERED: Naloxone 0.4 MG/ML INJ IVP PRN (11:00)
[2020-07-08] MEDS ORDERED: Ondansetron ODT 4 MG TAB.RAPDIS SL PRN (11:00)
[2020-07-08] MEDS: 0.9 % Sodium Chloride 1,000 ML IVC SCH (11:59)
[2020-07-08] MEDS ORDERED: Ketorolac 15 MG/ML VIAL IVP SCH (12:00)
[2020-07-08] MEDS ORDERED: Acetaminophen 325 MG TABLET PO PRN (12:28)
[2020-07-09] MEDS: Clindamycin 600 MG/50 ML 600 MG/50 ML IV.SOLN IVPB SCH (08:27)
[2020-07-09] MEDS: carvediloL 25 MG TABLET PO SCH (08:33)
[2020-07-09] MEDS ORDERED: Cyanocobalamin (B-12) 1,000 MCG TABLET PO SCH (09:00)
[2020-07-09] MEDS ORDERED: BuPROPion XL (24 HR) 150 MG TABLET PO SCH (09:00)
[2020-07-09] MEDS ORDERED: amLODIPine 5 MG TABLET PO SCH (09:00)
[2020-07-09] MEDS ORDERED: lisinopriL 10 MG TABLET PO SCH (09:00)
[2020-07-09] MEDS ORDERED: Venlafaxine XR (24 HR) 37.5 MG CAP.ER.24H PO SCH (09:00)
[2020-07-09] MEDS ORDERED: aMILoride 5 MG TABLET PO SCH (09:00)
[2020-07-09 11:35] VITALS: BP 116/74
[2020-07-09 12:46] LABS: Basophils % 0.1 %; Hematocrit 40.5 % (37.5-50.1); Hemoglobin 13.1 g/dL (12.9-16.9); Immature Granulocytes % 0.6 % (0-4); Lymphocytes # 1.4 K/mcL (0.6-4.6); Lymphocytes % 9.1 %; Mean Corpuscular HGB Conc 32.3 g/dL (31.6-35.5); Mean Corpuscular Hemoglobin 29.3 pg (28.0-33.3); Mean Corpuscular Volume 90.6 fL (83.0-100.0); Mean Platelet Volume 10.9 fL (9.4-12.4); Monocytes # 1.3 K/mcL (0.0-1.3); Monocytes % 8.1 %; Platelet Count 237 K/mcL (140-400); Red Blood Count 4.47 M/mcL (4.19-5.50); Red Cell Distribution Width 13.2 % (11.5-14.5); Segmented Neutrophils % 82.1 %
[2020-07-09 12:47] LABS: White Blood Count 15.8 K/mcL (4.3-11.1)
[2020-07-09 13:06] LABS: BUN/Creatinine Ratio 11 (6-26); Blood Urea Nitrogen 16 mg/dL (8-23); Calcium 9.3 mg/dL (8.6-10.3); Carbon Dioxide 24 mEq/L (23-29); Chloride 105 mEq/L (98-107); Glucose 119 mg/dL (70-105); Osmolality,Calculated 286 (280-300); Potassium 4.2 mEq/L (3.5-5.1); Sodium 137 mEq/L (136-145); eGFR For African Americans > 60 (> 60); eGFR For Non-African Americans 51 (> 60)
== END 2020-07-09 14:05 | disposition home or self-care (01) ==
LOC: EMEROOARM 17:16 → 3ANU 17:16 → SUATTDRO 19:45 → 3ANU 20:31
PROVIDERS: ADMIT Internal Medicine; ATTEND Internal Medicine